=== PATIENT | male | born 1975 | race African-American/Black ===

== ENCOUNTER 2017-03-15 00:40 | Emergency (ER) | payer OTHER ==
[~2017-03-15] VITALS: Ht 172.7 cm; Wt 81.6 kg
[2017-03-15 00:44] VITALS: BP 148/90
--- NOTE | 2017-03-15 00:54 | NUR ---
AMBULATED TO ER BED 6
--- NOTE | 2017-03-15 01:10 | NUR ---
Patient being evaluated by physician at bedside.
--- NOTE | 2017-03-15 01:14 | NUR ---
41/ M PRESENTS TO ER C/O LEFT WRIST PAIN. PMH ASTHMA, NKA. 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 AA&O X4, PT IN BED ON HIS PHONE, ER MD NOTIFIED OF PT STATUS, COMFORT NEEDS MET.
[2017-03-15] MEDS ORDERED: IBUPROFEN 800 MG TAB PO ONE (01:15)
[2017-03-15 01:44] VITALS: BP 148/90
--- NOTE | 2017-03-15 01:44 | NUR ---
Patient discharged with v/s stable. Written and verbal after care instructions given and explained. Patient verbalized understanding. Ambulatory with steady gait. All questions addressed prior to discharge. Advised to follow up with PMD. rx motrin 800mg given.
== END 2017-03-15 01:40 | disposition home or self-care (01) ==
LOC: MED 00:40
DX: S63.502A Unspecified sprain of left wrist, initial encounter (principal); J45.909 Unspecified asthma, uncomplicated; Z88.0 Allergy status to penicillin; X58.XXXA Exposure to other specified factors, initial encounter; Y93.89 Activity, other specified; Y92.89 Other specified places as the place of occurrence of the external cause; Y99.8 Other external cause status
CPT/HCPCS: 73110; 99284

== ENCOUNTER 2019-07-15 13:00 | Emergency (ER) | payer OTHER ==
[~2019-07-15] VITALS: Ht 172.7 cm; Wt 78.5 kg
[2019-07-15 13:25] VITALS: BP 127/86
[2019-07-15 14:37] VITALS: BP 127/86
== END 2019-07-15 14:37 | disposition home or self-care (01) ==
LOC: MED 13:00
DX: L02.31 Cutaneous abscess of buttock (principal); R21 Rash and other nonspecific skin eruption; J45.909 Unspecified asthma, uncomplicated
CPT/HCPCS: 99283; 99284

== ENCOUNTER 2024-01-19 12:17 | Emergency (ER) | payer MEDICAID, OTHER ==
[~2024-01-19] VITALS: Ht 172.7 cm; Wt 72.6 kg
[2024-01-19 12:19] VITALS: BP 150/111; PULSE 103; RESP 18; TEMP 98.4; O2SAT 97
[2024-01-19] MEDS ORDERED: ONDANSETRON 4 MG ODT ONE (12:29)
[2024-01-19 12:30] VITALS: O2SAT 97
[2024-01-19] MEDS: ONDANSETRON 4 MG ODT PO ONE (12:34)
[2024-01-19 12:57] LABS: BASOPHILS # (AUTO) 0.1 K/uL (0.00-0.22); BASOPHILS % (AUTO) 0.8 % (0.0-2.0); EOSINOPHILS # (AUTO) 0.1 K/uL (0-0.4); EOSINOPHILS % (AUTO) 0.8 % (0.0-4.0); HEMATOCRIT 43.3 % (36-52); HEMOGLOBIN 14.6 g/dL (12.0-18.0); LYMPHOCYTES # (AUTO) 0.2 K/uL (2.0-11.5); LYMPHOCYTES % (AUTO) 3.1 % (20.5-51.1); MEAN CORPUSCULAR HEMOGLOBIN 30 pg (27-31); MEAN CORPUSCULAR HGB CONC 34 g/dL (33-37); MEAN CORPUSCULAR VOLUME 89.8 fL (80-94); MONOCYTES # (AUTO) 0.7 K/uL (0.8-1.0); MONOCYTES % (AUTO) 10.5 % (1.7-9.3); NEUTROPHILS % (AUTO) 84.8 % (42.2-75.2); PLATELET COUNT (AUTO) 257 K/uL (140-450); RED BLOOD CELL COUNT(AUTO) 4.82 MIL/uL (4.20-6.10); RED CELL DISTRIBUTION WIDTH 15.4 % (11.6-13.7)
[2024-01-19 13:15] LABS: ALBUMIN 3.6 g/dL (3.4-5.0); ANION GAP 8.6 (8-16); CALCIUM 9.1 mg/dL (8.5-10.1); CARBON DIOXIDE 30.4 mmol/L (21-32); CREATININE 1.1 mg/dL (0.6-1.3); TOTAL BILIRUBIN 0.9 mg/dL (0.0-1.0)
== END 2024-01-19 13:12 | disposition left against medical advice (07) ==
LOC: MED 12:17
DX: R10.9 Unspecified abdominal pain (principal); R11.0 Nausea; F12.90 Cannabis use, unspecified, uncomplicated; R00.0 Tachycardia, unspecified; J45.909 Unspecified asthma, uncomplicated; I10 Essential (primary) hypertension; Z88.0 Allergy status to penicillin
CPT/HCPCS: 36415; 80053; 83690; 85025; 99283; Q0162